=== PATIENT | male | born 1995 | race Caucasian/White ===

== ENCOUNTER 2018-04-16 09:55 | Day surgery (SDC) | payer OTHER ==
[~2018-04-16 09:55] MED LIST: CEFAZOLIN 2 GM/D5W RTU 2 GM/50 ML RTUPB IV ONE; CEFAZOLIN 2 GM/D5W RTU 2 GM/50 ML RTUPB IV PRN
[2018-04-16] MEDS ORDERED: BUPIVACAINE HCL 0.5 % INJ/PF 30 ML SDV ONE (10:55)
[2018-04-16 11:08] LABS: HEMATOCRIT 44.3 % (37.9-51.0); HEMOGLOBIN 15.6 g/dL (13.5-17.0); MEAN CORPUSCULAR HEMOGLOBIN 28.5 pg (27.0-33.4); MEAN CORPUSCULAR HGB CONC 35.1 g/dL (32.0-36.0); MEAN CORPUSCULAR VOLUME 81 fl (80-97); PLATELET COUNT 206 10^3/uL (150-450); RED BLOOD COUNT 5.46 10^6/uL (4.35-5.55); RED CELL DISTRIBUTION WIDTH 13.3 % (11.5-14.0); WHITE BLOOD COUNT 5.6 10^3/uL (4.0-10.5)
[2018-04-16 11:30] LABS: ANION GAP 8 (5-19); BLOOD UREA NITROGEN 14 mg/dL (7-20); CALCIUM 9.8 mg/dL (8.4-10.2); CARBON DIOXIDE 31 mmol/L (22-30); CHLORIDE 102 mmol/L (98-107); GLUCOSE 108 mg/dL (75-110); POTASSIUM 4.8 mmol/L (3.6-5.0); SODIUM 140.7 mmol/L (137-145)
[2018-04-16] MEDS ORDERED: PROMETHAZINE HCL INJ 25 MG/1 ML VIAL ONE (11:36)
[2018-04-16] MEDS ORDERED: FENTANYL CITRATE INJ/PF 100 MCG/2 ML AMPUL ONE (11:36)
[2018-04-16] MEDS ORDERED: HYDROMORPHONE HCL INJ/PF 2 MG/ML AMPULE ONE (11:36)
[2018-04-16] MEDS ORDERED: ONDANSETRON HCL INJ/PF 4 MG/2 ML SDV ONE (11:36)
[2018-04-16] MEDS ORDERED: DEXAMETHASONE SOD PHOSPHATE INJ 4 MG/1 ML VIAL ONE (11:36)
[2018-04-16] MEDS ORDERED: MIDAZOLAM 2 MG/2 ML INJ ONE (11:36)
[2018-04-16] MEDS ORDERED: PROPOFOL INJ 200 MG/20 ML VIAL IV ONE (11:36)
[2018-04-16] MEDS ORDERED: ACETAMINOPHEN 1,000 MG/100 ML RTUPB IV ONE (11:37)
[2018-04-16] MEDS ORDERED: EPHEDRINE SULFATE INJ 50 MG/1 ML AMPULE ONE (11:37)
[2018-04-16] MEDS ORDERED: PROMETHAZINE HCL INJ 25 MG/1 ML VIAL IV PRN ×2 (12:55)
[2018-04-16] MEDS ORDERED: FENTANYL CITRATE INJ/PF 100 MCG/2 ML AMPUL IV PRN ×3 (12:55)
[2018-04-16] MEDS ORDERED: MORPHINE SULFATE 10 MG/ML INJ IV PRN ×2 (12:55→13:44)
[2018-04-16] MEDS ORDERED: DIPHENHYDRAMINE HCL 50 MG/ML VIAL IV PRN (12:55)
[2018-04-16] MEDS ORDERED: MEPERIDINE HCL/PF INJ 25 MG/1 ML DISP.SYRIN IV PRN (12:55)
[2018-04-16] MEDS ORDERED: ONDANSETRON HCL INJ/PF 4 MG/2 ML SDV IV PRN (13:43)
[2018-04-16] MEDS ORDERED: HYDROCODONE/ACETAMINOPHEN 5-325 MG TABLET PO PRN (13:43)
--- NOTE | 2018-04-16 13:49 | Operative Report ---
Operative Report DATE OF SURGERY: 04/16/18 PREOPERATIVE DIAGNOSIS: Left proximal pole scaphoid fracture POSTOPERATIVE DIAGNOSIS: Same OPERATION: ORIF left proximal pole scaphoid fracture SURGEON: JORGE ALBERTO RAE ANESTHESIA: GA COMPLICATIONS: none ESTIMATED BLOOD LOSS: Minimal PROCEDURE: Indication for above procedure: 22-year-old male who sustained a fall onto his outstretched left wrist while skiing approximate 7 days ago. Patient had x-rays outside facility demonstrating scaphoid fracture. Upon follow-up with me we discussed findings on radiographs and obtain CT scan confirming scaphoid fracture. Given the proximal nature of the fracture decision was made to proceed with operative treatment. Risks and benefits were explained including infection, postoperative pain, nonunion and avascular necrosis. Patient verbalized understanding consented for the procedure. Procedure In Detail: Patient was seen and evaluated in the preoperative holding area. The LEFT upper extremity was initialized and marked. Patient received 2g of Ancef IV for bacterial prophylaxis. Patient was taken back to the operative room where transferred to the operative table and placed under general anesthesia. Once they were adequately anesthetized a nonsterile tourniquet was placed on the upper extremity. A surgical team debriefing was performed ensuring all instrumentation was available, the surgical procedure was discussed with possible concerns reviewed. The upper extremity was prepped with chlorhexidine and alcohol and draped in a sterile fashion. A timeout was done identifying correct patient, procedure and extremity everyone in attendance agree with this and verbalized no concerns. The extremity was exsanguinated the tourniquet was inflated to 250 mmHg. Longitudinal skin incision was made Just distal to Isis's tubercle and ulnar. Blunt dissection was performed in the interval between the second and fourth dorsal compartments was utilized retracting the ECRB/ECRL radially and EDC ulnarly. The capsule was then split transversely between the DRC and DIC to expose the scapholunate joint. Wrist was then hyperflexed and the proximal pole of the scaphoid identified. There was a cartilage covering fracture and fracture line was not visualized. 0.045 K wire for mini Acutrak screw was then placed perpendicular to the p roximal pole scaphoid fracture in the center position on AP and lateral projections. Once confirmed the screw measured approximately 26 mm but given the proximal nature decision was made to place a 20 mm subtracting 6 mm from the measuring device. The countersink drill was then utilized for the proximal pole and then the step drill. 20 mm mini Acutrak screw was then placed providing compression at the fracture site, under direct visualization the screw was adequately beneath the subchondral surface. AP, lateral, oblique and supinated lateral demonstrated perpendicular screw to the fracture. No evidence of intra-articular screw penetration. No crepitus with range of motion at completion. Wound was then copiously irrigated with normal saline. Capsule was closed with interrupted 4-0 Monocryl suture. Skin was closed with subcuticular 4-0 Monocryl reinforced with Dermabond and Steri-Strips. 10 cc of 0.5% bupivacaine without epinephrine was injected for postoperative pain control. Patient was placed in a well-padded thumb spica splint with the wrist in neutral position. Sponge counts, instrument counts, needle counts were correct. Patient was then awoken from anesthesia. Transferred from the operating room table to the operating room stretcher. There was no intraoperative complications patient tolerated procedure well stable to PACU. Postop plan: Patient follow-up the office in 2 weeks we will obtain radiographs and transition to thumb spica cast.
--- NOTE | 2018-04-16 13:50 | Discharge Summary ---
Discharge Summary (SDC) - Discharge Final Diagnosis: Left proximal pole scaphoid fracture Date of Surgery: 04/16/18 Discharge Date: 04/16/18 Condition: Good Treatment or Instructions: Schedule Follow Up w/ Dr. Martinez Pa @ [facility] for Surgery to be seen in 10-14 days or as scheduled [place]: Cash: Prole: Ice and elevate Keep splint clean/dry/intact. If your fingers become numb please unwrap the Lit wrap but leave the splint in place, if the sensation does not return within 30 minutes please return to the emergency department. May begin finger range of motion attempting to make full fist. Please use ibuprofen (Motrin or Advil) 600-800 mg every 8 hours as needed for pain or fever DO NOT TAKE w/ TORADOL may use once TORADOL complete. You may also use acetaminophen (Tylenol) 1000 mg every 4-6 hours as needed for pain or fever. Please be aware that many medications contain acetaminophen, do not exceed a total of 1000 mg of acetaminophen every 6 hours. If ibuprofen and acetaminophen are not sufficient for your pain you may take the Percocet/Keller. Please be aware that the Percocet/Keller does contain Tylenol. Stool softener of choice when on pain medication. USE OF [id number]-[id number] IBUPROFEN: Ibuprofen (Advil, Nuprin, Medipren, Motrin IB) is a medication for fever and pain control. In addition, it has anti- inflammatory effects which may be beneficial, especially in the treatment of injuries. It's best to take ibuprofen with food. Persons with ulcer disease or allergy to aspirin should notify their physician of this before taking ibuprofen. Ibuprofen can be given every four to six hours, for a total of four doses daily. Age Pain or fever dose Antiinflammatory dose 6-8 yr 200 mg (1 tab) 200 mg (1 tab) 9-11 yr 200 mg (1 tab) 200-400 mg (1-2 tab) 11-14 yr 200-400 mg (1-2 tab) 400 mg (2 tab) 15-adult 400 mg (2 tab) 600 mg (3 tab) ORAL NARCOTIC MEDICATION: You have been given a prescription for pain control. This medication is a narcotic. It's best taken with food, as nausea can result if taken on an empty stomach. Don't operate machinery or drive within six hours of taking this medication. Do not combine this medicine with alcohol, or with any medication which can cause sedation (such as cold tablets or sleeping pills) unless you get permission from the physician. Narcotics tend to cause constipation. If possible, drink plenty of fluids and eat a diet high in fiber and fruits. Please be aware that prescription narcotics also have the potential for abuse. People become addicted to these medications because of the general sense of wellbeing that they induce. This feeling along with a significant reduction in tension, anxiety, and aggression provides a stimulating seductive quality to these drugs. Once your pain is under control, we encourage you to discard your unused narcotics. Prescriptions: Oxycodone HCl/Acetaminophen [Percocet 5-325 mg Tablet] 1 tab PO Q6 PRN #25 tab PRN Reason: Discharge Diet: As Tolerated Respiratory Treatments at Home: Deep Breathing/Coughing Discharge Activity: No Lifting Over 10 Pounds, No Lifting/Push/Pulling Report the Following to Your Physician Immediately: Fever over 101 Degrees, Unusual Bleeding, Redness, Swelling, Warmth, Increased Soreness
[2018-04-16] MEDS ORDERED: KETOROLAC TROMETHAMINE INJ/PF 30 MG/1 ML SDV ONE (13:59)
[2018-04-16] MEDS ORDERED: HYDROCODONE/ACETAMINOPHEN 5-325 MG TABLET ONE (14:36)
--- NOTE | 2018-04-16 14:55 | RADIOLOGY REPORT (SQ) ---
EXAM DESCRIPTION: HAND LEFT 2 VIEWS; NO CHG FLUORO COMPLETED DATE/TIME: 04/16/2018 2:03 pm REASON FOR STUDY: LEFT SCAPHOID ORIF S62.035A NONDISP FX OF PROXIMAL THIRD OF NAVIC BONE OF L WRI COMPARISON: None. FLUOROSCOPY TIME: 1 minutes 4 seconds 7 digital radiographic images saved to PACS. TECHNIQUE: Intra-operative images acquired during surgical procedure to evaluate progress. NUMBER OF IMAGES: 7 digital fluoroscopic images LIMITATIONS: None. FINDINGS: 7 fluoroscopic images of the left wrist are submitted. Scaphoid bone has a screw stabiliz ing a transverse fracture which is incompletely healed. Please see the operative report for further details IMPRESSION: IMAGE(S) OBTAINED DURING PROCEDURE. COMMENT: Quality ID [id number]: Final reports for procedures using fluoroscopy that document radiation exp osure indices, or exposure time and number of fluorographic images (if radiation exposure indices are not available) Please consult full operative report of the attending physician for description of the procedure. TECHNICAL DOCUMENTATION: JOB ID: [id number] [employer]- All Rights Reserved Reading location - IP/workstation name: [email or web address]
--- NOTE | 2018-04-16 14:55 | RADIOLOGY REPORT (SQ) ---
EXAM DESCRIPTION: HAND LEFT 2 VIEWS; NO CHG FLUORO COMPLETED DATE/TIME: 04/16/2018 2:03 pm REASON FOR STUDY: LEFT SCAPHOID ORIF S62.035A NONDISP FX OF PROXIMAL THIRD OF NAVIC BONE OF L WRI COMPARISON: None. FLUOROSCOPY TIME: 1 minutes 4 seconds 7 digital radiographic images saved to PACS. TECHNIQUE: Intra-operative images acquired during surgical procedure to evaluate progress. NUMBER OF IMAGES: 7 digital fluoroscopic images LIMITATIONS: None. FINDINGS: 7 fluoroscopic images of the left wrist are submitted. Scaphoid bone has a screw stabiliz ing a transverse fracture which is incompletely healed. Please see the operative report for further details IMPRESSION: IMAGE(S) OBTAINED DURING PROCEDURE. COMMENT: Quality ID [id number]: Final reports for procedures using fluoroscopy that document radiation exp osure indices, or exposure time and number of fluorographic images (if radiation exposure indices are not available) Please consult full operative report of the attending physician for description of the procedure. TECHNICAL DOCUMENTATION: JOB ID: [id number] [employer]- All Rights Reserved Reading location - IP/workstation name: [email or web address]
[2018-04-16 15:51] VITALS: BP 111/67
== END 2018-04-16 15:30 | disposition home or self-care (01) ==
LOC: OROUT 09:55
PROVIDERS: ATTEND Orthopaedic Surgery
DX: S62.035A Nondisplaced fracture of proximal third of navicular [scaphoid] bone of left wrist, initial encounter for closed fracture (principal); M25.532 Pain in left wrist; W19.XXXA Unspecified fall, initial encounter; Y93.23 Activity, snow (alpine) (downhill) skiing, snowboarding, sledding, tobogganing and snow tubing
CPT/HCPCS: 25628; 36415; 85027; 80048; 73120; C1713; C1769; J2250; J3490; J1100; J3010; J1885; J2550; J2405; J2704; J0690; J0131; 01830; J1170